=== PATIENT | female | born 1990 | race Caucasian/White ===

== ENCOUNTER 2017-07-21 04:05 | Emergency (ER) | payer OTHER ==
[~2017-07-21] VITALS: Ht 157.5 cm; Wt 78.5 kg
[2017-07-21] MEDS ORDERED: FAMO-79 PO (04:16)
[2017-07-21] MEDS ORDERED: SODIUM CHLORIDE 0.9% 1,000ML IVBOLUS ONE (04:30)
[2017-07-21] MEDS ORDERED: PANTOPRAZOLE 40 MG IV IVPush ONE (04:30)
[2017-07-21] MEDS ORDERED: SODIUM CHLORIDE FLUSH 10ML SYR IVF ONE (04:30)
[2017-07-21] MEDS ORDERED: ONDANSETRON 2MG/ML, 2ML IVPush ONE (04:30)
[2017-07-21] MEDS ORDERED: FAMOTIDINE 20 MG/2 ML IVP ONE (04:30)
[2017-07-21] MEDS ORDERED: FAMOTIDINE 20 MG/2 ML ONE (04:34)
[2017-07-21] MEDS ORDERED: ONDANSETRON 2MG/ML, 2ML ONE (04:34)
[2017-07-21] MEDS ORDERED: PANTOPRAZOLE 40 MG IV ONE (04:34)
[2017-07-21 04:52] LABS: HEMOGLOBIN 13.3 g/dL (11.7-16.4); WHITE BLOOD COUNT 8.5 x10^3/uL (3.4-10)
[2017-07-21 05:12] LABS: ASPARTATE AMINO TRANSFERASE 16 U/L (15-37); BLOOD UREA NITROGEN 10 mg/dL (7-18)
[2017-07-21 06:58] VITALS: BP 106/60
== END 2017-07-21 07:01 | disposition home or self-care (01) ==
LOC: ED 05:14
DX: K29.00 Acute gastritis without bleeding (principal)
CPT/HCPCS: 36415; 76700; 80053; 83690; 84703; 85025; 96361; 96374; 96375; 99285; C9113; J2405; J7030; S0028